=== PATIENT | female | born 1955 | race Caucasian/White ===

== ENCOUNTER → 2021-05-26 | Outpatient (CLI) | payer OTHER ==
[~2021-05-26] MED LIST: HORMONE REPLACEMENT PO
== END | disposition home or self-care (01) ==
LOC: RAD 09:38
PROVIDERS: ATTEND Chiropractor
DX: M48.061 Spinal stenosis, lumbar region without neurogenic claudication (principal); M47.816 Spondylosis without myelopathy or radiculopathy, lumbar region

== ENCOUNTER 2021-06-29 06:15 | Emergency (ER) | payer OTHER ==
[~2021-06-29] VITALS: Ht 162.5 cm; Wt 61.2 kg
[2021-06-29 06:38] VITALS: BP 144/94
[2021-06-29] MEDS ORDERED: CYCLOBENZAPRINE5 M3 PO (10:43)
[2021-06-29] MEDS ORDERED: PREDNISONE50 MG PO (11:02)
== END 2021-06-29 10:57 | disposition home or self-care (01) ==
LOC: ED 06:15
DX: M25.511 Pain in right shoulder (principal); M25.512 Pain in left shoulder; Z88.1 Allergy status to other antibiotic agents; Z88.8 Allergy status to other drugs, medicaments and biological substances; W17.89XA Other fall from one level to another, initial encounter; Z91.81 History of falling; Y93.89 Activity, other specified; Y92.89 Other specified places as the place of occurrence of the external cause; Y99.8 Other external cause status

== ENCOUNTER → 2021-07-06 | Outpatient (CLI) | payer OTHER ==
[~2021-07-06] MED LIST changes: +CYCLOBENZAPRINE5 M3 PO; +PREDNISONE50 MG PO
== END | disposition home or self-care (01) ==
LOC: RAD 09:37
PROVIDERS: ATTEND Chiropractor
DX: M50.30 Other cervical disc degeneration, unspecified cervical region (principal)